=== PATIENT | female | born 1955 | race African-American/Black ===

== ENCOUNTER 2020-10-06 17:20 | Emergency (ER) | payer SELFPAY ==
[2020-10-06 23:54] LABS: SARS-CoV-2 PCR by NAA Not Detected (NotDetected)
== END 2020-10-06 19:00 | disposition home or self-care (01) ==
LOC: ERS 17:20
DX: Z20.822 Contact with and (suspected) exposure to COVID-19 (principal); I10 Essential (primary) hypertension; Z87.891 Personal history of nicotine dependence
CPT/HCPCS: 99283; U0003; U0005

== ENCOUNTER 2020-10-18 12:11 | Emergency (ER) | payer SELFPAY ==
[2020-10-19 00:48] LABS: SARS-CoV-2 PCR by NAA DETECTED (NotDetected)
== END 2020-10-18 14:45 | disposition home or self-care (01) ==
LOC: ERS 12:11
DX: U07.1 COVID-19 (principal); J02.9 Acute pharyngitis, unspecified; I10 Essential (primary) hypertension; Z87.891 Personal history of nicotine dependence
CPT/HCPCS: 99283; U0003; U0005